=== PATIENT | male | born 1955 | race Caucasian/White ===

== ENCOUNTER → 2017-05-11 | Outpatient (CLI) | payer MEDICARE, OTHER ==
[~2017-05-11] MED LIST: AMLODIPINE BESY10 MG PO; ASPIR 8181 MG PO; AVAPRO 150 MG150 M1 PO; AVAPRO300 MG; AVAPRO300 MG PO; CELEBREX 200 M200 M1 PO; CELEBREX 200 M200 MG PO; CRESTOR10 MG PO; FLOMAX PO; HYDROCHLOROTHIA25 M1 PO; HYDROCODON-ACE1 EAC2 PO; LIDODERM 5%1 PATC1 TRANSDERM; MOBIC7.5 MG PO; NABUMETONE PO; NAPROSYN500 MG PO; NITROGLYCERIN0.4 MG SUBLING; PERCOCET 10-321 EACH PO; PERCOCET 5-3251 EACH PO; PERCOCET 7.5-31 EACH PO; PERCOCET PO; PLAVIX 75 MG TA75 M1 PO; POTASSIUM20 OR; RELAFEN500 MG; RELAFEN500 MG PO; TOPROL XL100 MG PO; TOPROL XL25 MG PO; TRICOR145 MG PO; ZOFRAN4 MG PO
--- NOTE | 2017-05-12 09:02 | PAINCON ---
[address] [address] PAIN MANAGEMENT CONSULTATION Name: PATRICIO PUENTE Room: [facility]#: [id number] Admission: 05/11/17 Attend Phys: John Puente DO Discharge: Date of : 59 Report #: [id number] THIS REPORT FOR: //name// CC: John Velasquez DO DATE OF SERVICE: 05/11/2017 REFERRING PHYSICIAN: Leonel Velasquez DO CHIEF COMPLAINT: Bilateral shoulder pain. HISTORY OF PRESENT ILLNESS: As you know, the patient is a very pleasant 61-year-old male who returns today in followup visit with recurrent bilateral shoulder pain that is progressively worsening. The patient has requested intraarticular shoulder injections to be provided today. We discussed with the patient undergoing the right shoulder injection today, if continue to experience left shoulder pain, we would consider this as a procedure next week. We wish to limit the amount of exposure to steroid if we could possibly do so. He returns for this right shoulder injection today. He denies new injury or new trauma that may have led to symptoms. ALLERGIES: PENICILLIN. CURRENT MEDICATIONS: Amlodipine 10 mg once a day, aspirin 81 mg per day, fenofibrate 145 mg per day, irbesartan 150 mg per day, metoprolol 25 mg once a day, Percocet 10/325 one tab every 8 hours p.r.n. for pain, and lovastatin 10 mg per day. SOCIAL HISTORY: The patient continues to smoke. He denies IV or illicit drug use. Denies any chronic alcohol use. He is unaccompanied today. IMAGING: No imaging available. PHYSICAL EXAMINATION: VITAL SIGNS: Blood pressure 122/60, pulse 68, respiratory rate 16 and unlabored, the patient is 98% on room air, current temperature 97.7 degrees Fahrenheit, height 5 feet 10 inches tall, weight 239 pounds, and BMI calculated 34. GENERAL: Well-developed, well-nourished, well-hydrated, exogenously obese 61-year-old male, appearing stated age, placing current pain score 9-10, right shoulder greater than left. HEENT: Normocephalic, atraumatic. Pupils are equal, round, and reactive to light. Extraocular muscles are intact. EXTREMITIES: Show no clubbing, no cyanosis, [place] [address] PAIN MANAGEMENT CONSULTATION Name: PATRICIO PUENTE Room: [facility]#: [id number] Admission: 05/11/17 Attend Phys: John Puente DO Discharge: Date of : 59 Report #: [id number] MUSCULOSKELETAL: There is pain elicited with active and passive range of motion of the bilateral shoulders. There is limitation of motion on the right, mainly due to pain generation. Muscle bulk and tone equal and symmetrical. Well-healed surgical scar over the right shoulder. ASSESSMENT: 1. Right shoulder pain. 2. Right shoulder osteoarthritis. 3. Chronic lumbar radiculopathy. 4. Displacement of lumbar intervertebral disk with radiculopathy. 5. Lumbosacral spondylosis with radiculopathy. 6. Chronic intractable pain. PLAN: 1. The patient returns today in followup visit with concerns of bilateral shoulder pain, right greater than left. We have provided today's appointment to undergo a right intraarticular shoulder injection. The hope is we can improve the patient's right shoulder pain with these injections as we have seen good efficacy in the past and having the patient return today to undergo this procedure. He has been advised the risks and benefits of the procedure, states understood and wished to proceed. 2. The patient will be scheduled next week to undergo left shoulder intra-articular injection if necessary. We will set the appointment for the patient to return next week for the left intraarticular shoulder injection. If the patient is doing well at that time, we will delay the procedure. 3. The patient and I had a very long discussion about impending surgical procedure from the low back standpoint, he is seeing a physician at [facility]. The patient underwent a CT myelogram last week. He is going back to review the findings and discuss the possibility of undergoing surgery. He will keep us apprised of this surgical possibility. 4. No medication changes were made at today's visit. The patient to continue current medical therapy as previously prescribed. 5. We will see the patient back in followup visit next week for possible left intraarticular shoulder injection. PROCEDURE NOTE DESCRIPTION OF PROCEDURE: Right intra-articular shoulder injection under fluoroscopic guidance. After obtaining written consent, the patient was taken back to fluoroscopy suite, placed in a supine position with pillow under shoulder for comfort. The image intensifier was then brought into position over the right shoulder and imaging was obtained. A sterile marker was then used to melani the area overlying the site of injection. The patient was then prepped and draped with chlorhexidine. A 27-gauge 1-1/4-inch needle was then [place] [address] PAIN MANAGEMENT CONSULTATION Name: PATRICIO PUENTE Room: [facility]#: [id number] Admission: 05/11/17 Attend Phys: John Puente DO Discharge: Date of : 59 Report #: [id number] skin and subcutaneous tissue overlying the target site of injection. A 25-gauge 2-inch needle was advanced under fluoroscopic guidance towards the proximal head of the humerus. This was done under live fluoroscopy. Needle was advanced until reaching the proximal head of the humerus, then retracted approximately 1 mm. After negative aspiration for heme, 3 mL of a solution containing 1 mL 40 mg per mL, 40 mg total triamcinolone, 2 mL bupivacaine 0.5% was injected slowly. Needle retracted fci, flushed with 0.5 mL of 0.5% bupivacaine and removed. Sterile bandage placed over injection site. The patient tolerated the procedure well, carefully escorted to the recovery room in stable condition. No apparent complication. After meeting discharge criteria, the patient discharged home. <ELECTRONICALLY SIGNED> By: John Puente DO 05/12/17 0902 [id number] [id number] Puente DO /nt
== END | disposition home or self-care (01) ==
LOC: M.PC 01:18
DX: M19.011 Primary osteoarthritis, right shoulder (principal); G89.29 Other chronic pain; M51.16 Intervertebral disc disorders with radiculopathy, lumbar region; M47.27 Other spondylosis with radiculopathy, lumbosacral region; F17.210 Nicotine dependence, cigarettes, uncomplicated; Z88.0 Allergy status to penicillin; Z79.899 Other long term (current) drug therapy; Z79.82 Long term (current) use of aspirin

== ENCOUNTER → 2017-05-18 | Outpatient (CLI) | payer MEDICARE, OTHER ==
--- NOTE | 2017-06-02 07:28 | PAINCON ---
[address] [address] PAIN MANAGEMENT CONSULTATION Name: PATRICIO PUENTE Room: [facility]#: [id number] Admission: 05/18/17 Attend Phys: John Puente DO Discharge: Date of : 59 Report #: [id number] THIS REPORT FOR: //name// CC: John Velasquez DO DATE OF SERVICE: 05/18/2017 REFERRING PHYSICIAN: Leonel Velasquez DO CHIEF COMPLAINT: Left shoulder pain. HISTORY OF PRESENT ILLNESS: As you know, the patient is a very pleasant 61-year-old male who returns today in followup visit to undergo left intraarticular shoulder injection under fluoroscopic guidance. He underwent right shoulder injection last week with good efficacy. He is following up with his neurosurgeon in regards to low back symptoms. He has returned today with a level of 5/10 left shoulder pain, for which he wants to address with a left intraarticular shoulder injection. He denies injury or trauma to the area. He does carry the diagnosis of rotator cuff injury and osteoarthritis of the left shoulder. ALLERGIES: PENICILLIN. CURRENT MEDICATIONS: Amlodipine, aspirin, fenofibrate, irbesartan, metoprolol, oxycodone. SOCIAL HISTORY: The patient denies IV or illicit drug use. Denies any chronic alcohol use. He continues to smoke. He is unaccompanied today. IMAGING: No new imaging available. PHYSICAL EXAMINATION: VITAL SIGNS: Blood pressure 117/77, pulse is 60, respiratory rate 16 and unlabored, the patient is 98% on room air, current temperature 98.2 degrees Fahrenheit. Height 5 feet 10 inches tall, weight 230 pounds, BMI calculated 33. GENERAL: Well-developed, well-nourished, well-hydrated 61-year-old male who appears stated age, placing current pain score 5/10, left shoulder. HEENT: Normocephalic, atraumatic. Pupils equal, round, reactive to light. EXTREMITIES: Show no clubbing, no cyanosis, no edema. MUSCULOSKELETAL: Pain is elicited with active and passive range of motion of left shoulder. There is noted limitation of motion on the left when compared to the right. Today, right appears improved after intraarticular shoulder injection, well-healed surgical [place] [address] PAIN MANAGEMENT CONSULTATION Name: PATRICIO PUENTE Room: [facility]#: [id number] Admission: 05/18/17 Attend Phys: John Puente DO Discharge: Date of : 59 Report #: [id number] ASSESSMENT: 1. Left shoulder osteoarthritis. 2. Right shoulder osteoarthritis. 3. Chronic left shoulder pain. 4. Chronic right shoulder pain. 5. Chronic lumbar radiculopathy. 6. Displacement of lumbar intervertebral disk with radiculopathy. 7. Lumbosacral spondylosis with radiculopathy. 8. Chronic intractable pain. PLAN: 1. The patient returns today in followup visit to undergo a left intraarticular shoulder injection. He has noted good efficacy with his right intraarticular shoulder injection from last visit. At this point, the patient is placing pain score 5/10. He has been advised risks and benefits of a left intraarticular shoulder injection, states understood and wished to proceed. 2. The patient was provided a prescription of oxycodone 10/325 one tab p.o. q. 5 hours p.r.n. for pain, he was given #90, releases today, 2 weeks from today and 4 weeks from today, 6 weeks' worth of medication. 3. We will see the patient back in followup visit in 6 weeks for medication management. <ELECTRONICALLY SIGNED> By: John Puente DO 06/02/17 0728 0909 1409Jajared Puente DO /nt
--- NOTE | 2017-06-02 07:28 | PROC ---
[address] [address] PROCEDURE REPORT Name: PATRICIO PUENTE Room: [facility]#: [id number] Admission: 05/18/17 Attend Phys: John Puente DO Discharge: Date of : 59 Report #: [id number] THIS REPORT FOR: //name// CC: John Velasquez DO DATE OF SERVICE: 05/18/2017 PROCEDURE NOTE DESCRIPTION OF PROCEDURE: Left intra-articular shoulder injection under fluoroscopic guidance. After obtaining written consent, the patient was taken to the fluoroscopy suite, placed in a supine position. A pillow was placed under the shoulder for comfort. The image intensifier was then brought into position over the left shoulder and imaging was obtained. A sterile marker was used to melani the area overlying the site of injection. The skin was prepped and draped in aseptic fashion using chlorhexidine. A 27-gauge, 1.25" needle was then used to anesthetize skin and subcutaneous tissue with 2 mL of 1% lidocaine. A 25-gauge 2-inch needle was advanced under fluoroscopic guidance into the left shoulder under direct visualization. The needle was advanced until reaching the proximal head of the humerus. Needle was then retracted approximately 1 mm and aspiration noted to be negative for heme. After negative aspiration for heme, 0.3 mL of Omnipaque was injected demonstrating an excellent shoulder arthrogram. After negative aspiration for heme, 3 mL of a solution containing 1 mL 40 mg per mL, 40 mg total triamcinolone, 2 mL bupivacaine 0.5% injected slowly. Needle retracted retirement, flushed with 1 mL of 1% lidocaine and removed. Sterile bandage placed over injection site. No new motor deficits present in the left upper extremity. The patient tolerated procedure well, carefully escorted to the recovery room in stable condition. No apparent complications. After meeting discharge criteria, the patient discharged home. <ELECTRONICALLY SIGNED> By: John Puente DO 06/02/17 0728 0909 [id number] Puente DO /nt
== END | disposition home or self-care (01) ==
LOC: M.PC 00:56
DX: M19.012 Primary osteoarthritis, left shoulder (principal); M19.011 Primary osteoarthritis, right shoulder; M51.16 Intervertebral disc disorders with radiculopathy, lumbar region; M47.27 Other spondylosis with radiculopathy, lumbosacral region; G89.29 Other chronic pain; Z68.33 Body mass index [BMI] 33.0-33.9, adult; Z88.0 Allergy status to penicillin; Z79.899 Other long term (current) drug therapy

== ENCOUNTER → 2017-06-30 | Outpatient (CLI) | payer MEDICARE, OTHER ==
--- NOTE | 2017-07-01 14:44 | PAINCON ---
[address] [address] PAIN MANAGEMENT CONSULTATION Name: PATRICIO PUENTE Room: [facility]#: [id number] Admission: 06/30/17 Attend Phys: Kimberly Burgos MD Discharge: Date of : 59 Report #: [id number] THIS REPORT FOR: //name// CC: Kimberly Velasquez DO DATE OF SERVICE: 06/30/2017 CHIEF COMPLAINT: Low back pain, hip pain, hand pain and knee pain. FOLLOWUP HISTORY: The patient is a 61-year-old gentleman who has been followed in the pain clinic by Dr. John Puente since 2010. This is my first visit with the patient. He is followed in the pain clinic because of chronic pain involving his shoulders, low back area and chronic intractable pain. He recently received injections in his shoulders, left and right. He has noted an improvement in that pain and discomfort. Has some pain in his low back area. He does have a nerve stimulator in place. States he has had that for about 4 years. Finds it is helpful. Also suffers from fibromyalgia. In the past, he did undergo a series of epidural steroid injections until they became less helpful. He has been trying to decrease his weight. Feels that "losing some weight" may help his back pain. ALLERGIES: PENICILLIN. MEDICATIONS: Amlodipine 10 mg daily, aspirin 81 mg daily, TriCor 145 mg tablets, cholesterol, Avapro 150 mg tablets, metoprolol 25 mg, oxycodone 10/325 one p.o. 5 times daily, Crestor 10 mg daily. PAST MEDICAL HISTORY: Hypertension, fibromyalgia, chronic low back pain, chronic bilateral hip pain, chronic bilateral knee pain, chronic bilateral shoulder pain, myocardial infarct, non-ST, hyperlipidemia or dyslipidemia, arthritis, bilateral knee pain, bilateral hip, chronic intractable pain, PAST SURGICAL HISTORY: Right surgical surgery x 2. 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 PHYSICAL EXAMINATION: GENERAL: The patient is a well-developed, well-nourished male. Appearance: Appears his stated age. Orientation: The patient is alert and oriented x 3. Affect appears appropriate. HEENT: Normocephalic, atraumatic. Extraocular eye muscles intact. No nasal congestion. Hearing appears normal. Moist buccal membranes. NECK: [place] [address] PAIN MANAGEMENT CONSULTATION Name: PATRICIO PUENTE Room: [facility]#: [id number] Admission: 06/30/17 Attend Phys: Kimberly Burgos MD Discharge: Date of : 59 Report #: [id number] LUNGS: Clear. HEART: Regular rate. ABDOMEN: Slightly protuberant. MUSCULOSKELETAL: Alignment appears within normal limits. Upper extremity strength is judged to be 5/5 with major muscle groups. Sensation in the upper extremities within normal limits without problems. Biceps reflexes +1 bilaterally. Lower extremity, notes symmetric musculature bilaterally. Complains of some pain and discomfort in the low back area. Has some soreness in the upper shoulders bilaterally, but much improved as compared to prior to injections by Fuentes. ASSESSMENT: 1. Left shoulder osteoarthritis. 2. Right shoulder osteoarthritis. 3. Chronic left shoulder pain. 4. Chronic right shoulder pain. 5. Chronic lumbar radiculopathy. 6. Displacement of lumbar intervertebral disk with radiculopathy. 7. Lumbosacral spondylosis with radiculopathy. 8. Chronic intractable pain. RECOMMENDATION: The patient states that his shoulders have improved after the injections under fluoroscopy with Fuentes. He states that he does have fibromyalgia. He states that he is not taking Lyrica that this medication was not very helpful. Notes that, he continues to use his dorsal column stimulator. He is able to change its settings. He finds that this is helpful. He states that he is trying to lose weight. He feels that his pain pills are helpful. We discussed the use of opioid medications. We explained to him that we are pretty much at the limit of what we could give hope Percocet saravia. He can take up to 5 tablets per day. We would need to go to a longer acting agent if he feels that the pain continues to be quite problematic. At this juncture, he feels that he would like to continue with his current medical regimen. He will call us if he has any problems with his medications. A script for the Percocet 1 p.o. q. 5 hours p.r.n. pain, total of 90 were rewritten. These are dispense in 2-week intervals. Total of three scripts were provided. We would like to thank you for letting us participate in his care. We hope he continues to improve. <ELECTRONICALLY SIGNED> By: Kimberly Burgos MD 07/01/17 1444 1445 1944N. Scott Burgos MD /[facility]
--- NOTE | 2017-07-01 14:44 | PAINCON ---
[address] [address] PAIN MANAGEMENT CONSULTATION Name: PATRICIO PUENTE Room: [facility]#: [id number] Admission: 06/30/17 Attend Phys: Kimberly Burgos MD Discharge: Date of : 59 Report #: [id number] THIS REPORT FOR: //name// CC: Kimberly Velasquez DATE OF SERVICE: 06/30/2017 ADDENDUM: For the file #[id number] PHYSICAL EXAMINATION: GENERAL: The patient is a well-developed, well-nourished male. Appearance: Appears his stated age. Orientation: The patient is alert and oriented x 3. Affect appears appropriate. HEENT: Normocephalic, atraumatic. Extraocular eye muscles intact. No nasal congestion. Hearing appears normal. Moist buccal membranes. NECK: Without adenopathy. LUNGS: Clear. HEART: Regular rate. ABDOMEN: Slightly protuberant. MUSCULOSKELETAL: Alignment appears within normal limits. Upper extremity strength is judged to be 5/5 with major muscle groups. Sensation in the upper extremities within normal limits without problems. Biceps reflexes +1 bilaterally. Lower extremity, notes symmetric musculature bilaterally. Complains of some pain and discomfort in the low back area. Has some soreness in the upper shoulders bilaterally, but much improved as compared to prior to injections by Fuentes. ASSESSMENT: 1. Left shoulder osteoarthritis. 2. Right shoulder osteoarthritis. 3. Chronic left shoulder pain. 4. Chronic right shoulder pain. 5. Chronic lumbar radiculopathy. 6. Displacement of lumbar intervertebral disk with radiculopathy. 7. Lumbosacral spondylosis with radiculopathy. 8. Chronic intractable pain. RECOMMENDATION: The patient states that his shoulders have improved after the injections under fluoroscopy with Fuentes. He states that he does have fibromyalgia. He states that he is not taking Lyrica that this medication was not very helpful. Notes that, he continues to use his dorsal column stimulator. He is able to change its settings. He finds that this is helpful. He states that he is trying to lose weight. He feels that his pain pills are helpful. We discussed the use of opioid medications. [place] explained [place] [address] PAIN MANAGEMENT CONSULTATION Name: PATRICIO PUENTE Room: [facility]#: [id number] Admission: 06/30/17 Attend Phys: Kimberly Burgos MD Discharge: Date of : 59 Report #: [id number] pretty much at the limit of what we could give hope Percocet saravia. He can take up to 5 tablets per day. We would need to go to a longer acting agent if he feels that the pain continues to be quite problematic. At this juncture, he feels that he would like to continue with his current medical regimen. He will call us if he has any problems with his medications. A script for the Percocet 1 p.o. q. 5 hours p.r.n. pain, total of 90 were rewritten. These are dispense in 2-week intervals. Total of three scripts were provided. We would like to thank you for letting us participate in his care. We hope he continues to improve. <ELECTRONICALLY SIGNED> By: Kimberly Burgos MD 07/01/17 1444 1455 1926N. Scott Burgos MD /[facility]
== END ==
LOC: M.PC 06-08 08:00
DX: M47.27 Other spondylosis with radiculopathy, lumbosacral region (principal); M51.16 Intervertebral disc disorders with radiculopathy, lumbar region; M19.012 Primary osteoarthritis, left shoulder; M19.011 Primary osteoarthritis, right shoulder; G89.4 Chronic pain syndrome

== ENCOUNTER → 2017-08-25 | Outpatient (CLI) | payer MEDICARE, OTHER ==
--- NOTE | 2017-09-01 10:23 | PAINCON ---
[address] [address] PAIN MANAGEMENT CONSULTATION Name: KWAMEPATRICIO Sky [id number] Admission: 08/25/17 Attend Phys: Kimberly Burgos MD Discharge: Date of : 59 Report #: [id number] THIS REPORT FOR: //name// CC: Kimberly Velasquez DO DATE OF SERVICE: 08/25/2017 FOLLOWUP COMPLAINT: Here for medication renewal and I would like to have a shoulder injection. FOLLOWUP HISTORY: The patient is a 61-year-old gentleman who has been seen in the pain clinic for quite a number of years. As you recall, he has problems with both his left shoulder and right shoulder. He has undergone injections into the shoulders in the past and gleaned benefits from these. At this juncture, he has pain, which is problematic in both left and right. Left is more problematic at this juncture. He has noted that the weather changes from cold to more warm temperatures and back again have exacerbated his pain and discomfort. He states that he has had 3 shoulder operations on the right and 2 shoulder surgeries on the left. He has noticed a limited range of motion secondary to these pains. He feels that his medications of hydrocodone are efficacious. He has taken the medication as prescribed. He is having no complication from its use. He has been watching the decision-making regarding opioids in the media. He feels that his medications are quite efficacious and allow him to be engaged in activities of daily living, he would not be able to without their use. Rates his pain as a 3/10 with use of his medications. The patient also has a dorsal column stimulator that he uses, which he feels can be helpful with pain and discomfort, which he is experiencing. As you recall, he also has fibromyalgia. ALLERGIES: PENICILLIN. CURRENT MEDICATIONS: Amlodipine 10 mg daily, aspirin 81 mg, TriCor 145 mg tablets, cholesterol, Avapro 150 mg tablets, metoprolol 25 mg, oxycodone 10/325 one tablet p.o. 5 times daily, Crestor 10 mg daily. PAIN CLINIC ASSESSMENT: 1. History of osteoarthritis involving his left shoulder as well as some low back changes. 2. Height 5 feet 10 inches, weight 230 pounds, BMI is 33. 3. Vital signs: Blood pressure 103/62, heart rate 48, respiratory rate 16, room air O2 saturation is 98%, temperature 97.7. 4. Pain intensity 3/10. 5. Fall risk. The patient has not fallen in the last 3 months. 6. The patient is on blood thinner. The patient [place] [address] PAIN MANAGEMENT CONSULTATION Name: PATRICIO PUENTE Room: [facility]#: [id number] Admission: 08/25/17 Attend Phys: Kimberly Burgos MD Discharge: Date of : 59 Report #: [id number] 7. Hypertension. The patient is being treated for hypertension. 8. Opioid therapy greater than 6 weeks. The patient is on opioid therapy and takes medications from the pain clinic. He only get his opioid from 1 source. 9. Risk assessment tool. 10. Functional assessment tool. 11. Recreational drug use. The patient denies use of recreational drugs. 12. Tobacco: The patient has smoked for 45 years and smokes about 15 cigarettes per day at this juncture. 13. Alcohol: The patient denies frequent use of alcoholic beverages. PHYSICAL EXAMINATION: GENERAL: The patient is a well-developed, nourished white male. He appears his stated age. He is alert and oriented x 3. His affect is appropriate. HEENT: Normocephalic, atraumatic. Extraocular eye muscles intact. Sclerae nonicteric. Nasal mucosa moist. Hearing is within normal limits. NECK: Without adenopathy or JVD. Good range of motion. LUNGS: Clear to auscultation without rhonchi. HEART: Regular rate and rhythm. ABDOMEN: Slightly protuberant. MUSCULOSKELETAL: Alignment appears within normal limits without significant scoliosis, kyphosis, or lordosis. The patient has biceps reflexes that are +1 bilaterally. Complains of some pain, discomfort, and limitations in his shoulders secondary to chronic pain in these areas. Lower extremities are judged to be 5/5 for the major muscle groups in lower extremity. ASSESSMENT: 1. Left shoulder osteoarthritis. 2. Right shoulder osteoarthritis. 3. Chronic left shoulder pain. 4. Chronic right shoulder pain. 5. Chronic lumbar radicular pain. 6. Displacement of lumbar intervertebral disk. 7. Lumbosacral spondylosis. 8. Chronic intractable pain. 9. History of dorsal column stimulator. RECOMMENDATIONS: We discussed treatment options with the patient. He will return to the pain clinic in the future. At that point, we will then undergo an epidural steroid injection, possibly in the left shoulder area, if this is the most problematic at that point. We will proceed with a fluoroscopic-guided injection. He has noted over the years that this has been quite helpful and efficacious and he would like to proceed with [place] [address] PAIN MANAGEMENT CONSULTATION Name: PATRICIO PUENTE [facility] [id number] Admission: 08/25/17 Attend Phys: Kimberly Burgos MD Discharge: Date of : 59 Report #: [id number] visit. We would like to thank you for letting us participate in his care. We hope he continues to improve. <ELECTRONICALLY SIGNED> By: Kimberly Burgos MD 09/01/17 1023 [id number] [id number] Burgos MD /[facility]
== END ==
LOC: M.PC 03:53
DX: M19.012 Primary osteoarthritis, left shoulder (principal); M19.011 Primary osteoarthritis, right shoulder; G89.29 Other chronic pain; M25.511 Pain in right shoulder; M25.512 Pain in left shoulder; M47.27 Other spondylosis with radiculopathy, lumbosacral region; Z88.0 Allergy status to penicillin

== ENCOUNTER → 2017-09-01 | Outpatient (CLI) | payer MEDICARE, OTHER ==
--- NOTE | 2017-09-30 13:42 | PAINCON ---
[address] [address] PAIN MANAGEMENT CONSULTATION Name: PATRICIO PUENTE Room: [facility].#: [id number] Admission: 09/01/17 Attend Phys: Kimberly Burgos MD Discharge: Date of : 59 Report #: [id number] THIS REPORT FOR: //name// CC: Kimberly Velasquez DO DATE OF SERVICE: 09/01/2017 FOLLOWUP COMPLAINT: Here for shoulder injection. FOLLOWUP HISTORY: The patient is a 61-year-old gentleman who has been followed in the pain clinic. He has been seen by Dr. Puente on numerous occasions. He has undergone injections into his shoulders. He has gleaned benefits from these. At this juncture, he has noted some increased pain in both his left and the right shoulder. He has returned today with the possibility of undergoing an injection. As you may recall, he has had significant benefits from injections in the past. He rates his pain as a 7/10 at this juncture. His left shoulder is most problematic at this juncture. He would like to undergo treatment for this. ALLERGIES: PENICILLIN. CURRENT MEDICATIONS: Amlodipine 10 mg daily, aspirin 81 mg, TriCor 145 mg tablets, cholesterol, Avapro 150 mg tablets, metoprolol 25 mg, oxycodone 10/325 one tablet p.o. 5 times daily, Crestor 10 mg daily. PAIN CLINIC ASSESSMENT: 1. History of osteoarthritis involving his left as well as his right shoulder as well as some low back changes. 2. Height 5 feet 10 inches. Weight 228 pounds, BMI is 32. 3. Vital signs: Blood pressure 102/40, heart rate 55, respiratory rate 18, room air saturations 98%, temperature 97.9. 4. Pain score 4/10 5. Fall risk. The patient has not fallen in the last 3 months. 6. Blood thinner. The patient is not on a blood thinner. 7. Hypertension. The patient is being treated for hypertension. 8. Opioid therapy greater than 6 weeks. The patient is on opioid therapy and has been taking medications and get his medications from 1 source which at the pain clinic. 9. Risk assessment tool. 10. Functional assessment tool. 11. Recreational drug use. The patient denies use of recreational drugs. 12. Tobacco: The patient has not smoked for 45 years, smoked about 15 years prior to that juncture. 13. Alcohol. The patient denies [place] [address] PAIN MANAGEMENT CONSULTATION Name: PATRICIO PUENTE Room: [facility]#: [id number] Admission: 09/01/17 Attend Phys: Kimberly Burgos MD Discharge: Date of : 59 Report #: [id number] PHYSICAL EXAMINATION: GENERAL: The patient is a well-developed, well-nourished white male. Appears his stated age. He is alert and oriented x 3. His affect is appropriate. Speech is fluent. HEENT: Normocephalic, atraumatic. Extraocular eye muscles intact. Sclerae nonicteric. Mucous membranes are moist. Hearing is within normal limits. NECK: Without adenopathy or JVD. Good range of motion. LUNGS: Clear to auscultation without rhonchi or rales. HEART: Regular rate and rhythm. S1, S2. ABDOMEN: Slightly protuberant. MUSCULOSKELETAL: Without significant kyphosis, scoliosis or lordosis. The patient's biceps reflexes are +1 in his arms bilaterally. The patient has some increased pain and discomfort in his low back as well as some pain and discomfort in his shoulders bilaterally. Left shoulder is more problematic than the right. Somewhat limited in his ability to go through the range of motion with increasing pain with increasing movement. RECOMMENDATIONS: We discussed treatment options with the patient. Risks and benefits of a shoulder injection with local anesthetic and steroid were discussed. We will proceed with an injection using fluoroscopy. Risks and benefits of the procedure were discussed with the patient. Possible complications were reviewed. They include but are not limited to infection, increased muscle soreness, worsening of pain, no improvement in pain and the patient elects to proceed. PROCEDURE NOTE: The patient was placed in the supine position. His left shoulder area was visualized under fluoroscopy. The area was sterilely prepped with a chlorhexidine solution and allowed to dry on 2 occasions. A 25-gauge needle was then advanced under fluoroscopy into the head of humerus. Aspiration did not refill fluid. A total of 40 mg triamcinolone and 5 mL of 0.5% bupivacaine was injected. The patient tolerated the procedure well. There were no complications. He remained in the pain clinic for an appropriate amount of time. States that he may return in the near future for injection involving the contralateral side. We would like to thank you for letting us participate in his care. We hope he continues to improve. <ELECTRONICALLY SIGNED> By: Kimberly Burgos MD 09/30/17 1342 1306 0247N. Scott Burgos MD /[facility]
== END | disposition home or self-care (01) ==
LOC: M.PC 02:18
DX: M19.012 Primary osteoarthritis, left shoulder (principal); M19.011 Primary osteoarthritis, right shoulder; G89.29 Other chronic pain; I10 Essential (primary) hypertension; Z88.0 Allergy status to penicillin; Z79.899 Other long term (current) drug therapy; Z79.82 Long term (current) use of aspirin; Z87.891 Personal history of nicotine dependence; Z79.891 Long term (current) use of opiate analgesic; Z98.890 Other specified postprocedural states

== ENCOUNTER → 2017-09-08 | Outpatient (CLI) | payer MEDICARE, OTHER ==
--- NOTE | 2017-09-30 14:05 | PAINCON ---
[address] [address] PAIN MANAGEMENT CONSULTATION Name: PATRICIO PUENTE Room: [facility].#: [id number] Admission: 09/08/17 Attend Phys: Kimberly Burgos MD Discharge: Date of : 59 Report #: [id number] THIS REPORT FOR: //name// CC: Kimberly Velasquez DO DATE OF SERVICE: 09/08/2017 FOLLOWUP COMPLAINT: Here for evaluation of shoulder pain. FOLLOWUP HISTORY: The patient is a 61-year-old gentleman who has been seen in the Pain Clinic because of bilateral shoulder problems. He has been seen by Dr. John Puente in the past. He has undergone injections in his shoulders. In the past, he has gleaned significant benefit from the injections. The patient was seen and underwent a shoulder injection in the left area because of chronic pain. He returns today indicating that his pain continues to be problematic. He is not sure that he benefited significantly from the last injection. [place] that he had had a very good relationship with Dr. John Puente and would like to continue with that relationship. States that he would like to consider going to [facility]. This is where Dr. John Puente is practicing at this juncture. ALLERGIES: PENICILLIN. CURRENT MEDICATIONS: Amlodipine 10 mg daily, aspirin 81 mg, TriCor 145 mg tablets, cholesterol, Avapro 150 mg tablets, metoprolol 25 mg, oxycodone 10/325 one tablet p.o. 5 times daily, and Crestor 10 mg daily. PAIN CLINIC ASSESSMENT: 1. History of osteoarthritis involving his left as well as his right shoulder. The patient has had a number of surgeries on these. 2. Height 5 feet 10 inches, weight 230 pounds, BMI is 33. 3. Vital signs: Blood pressure 124/62, heart rate 60, respiratory rate 18, room air saturation 97%, and temperature 98.6. 4. Pain score 4 left shoulder, 5-6 right shoulder, back 6/10. 5. Fall risk. The patient has not fallen in the last 3 months. 6. Blood thinner. The patient is not on a blood thinning medication. 7. Hypertension. The patient is being treated for hypertension. 8. Opioid therapy greater than 6 weeks. The patient is on an opioid contract and refuses medications from physician. 9. Risk assessment tool. 10. Functional assessment tool. 11. Recreational drug use: The patient denies use of recreational drugs. 12. Tobacco: The patient has not smoked for 45 years, smoked for about 15 [place] [address] PAIN MANAGEMENT CONSULTATION Name: PATRICIO PUENTE Room: [facility]#: [id number] Admission: 09/08/17 Attend Phys: Kimberly Burgos MD Discharge: Date of : 59 Report #: [id number] 13. Alcohol: The patient denies frequent use of alcoholic beverages. PHYSICAL EXAMINATION: GENERAL: The patient is a well-developed white male. VITAL SIGNS: Appears his stated age. He is alert and oriented x 3. His affect is appropriate. Speech is fluent. HEENT: Normocephalic and atraumatic. Extraocular eye muscles intact. Sclerae nonicteric. Mucous membranes are moist. Hearing is within normal limits. NECK: Without JVD or adenopathy. Good range of motion. Clear to auscultation without rhonchi or rales. HEART: Regular rate. Normal S1, S2. ABDOMEN: Slightly protuberant. MUSCULOSKELETAL: Without significant scoliosis, kyphosis or lordosis. The patient has pain and discomfort in the left shoulder as well as in the right shoulder. Notes some decreased range of motion in these areas. Rates the pain in the left shoulder as 4/10 and right shoulder 5-6/10. RECOMMENDATION: The patient states that he would like to continue to follow his care with Dr. John Puente. Dr. Puente now practices at [facility]. The patient will follow up with a visit at that facility. He would then continue to be under the hospice of Dr. John Puente. We would like to thank you for letting us participate in his care. We hope he continues to improve. <ELECTRONICALLY SIGNED> By: Kimberly Burgos MD 09/30/17 1405 1254 1310N. Scott Burgos MD /nt
== END ==
LOC: M.PC 02:17
DX: M25.512 Pain in left shoulder (principal); M25.511 Pain in right shoulder; I10 Essential (primary) hypertension

== ENCOUNTER → 2020-06-21 | Outpatient (CLI) | payer MEDICARE, OTHER | LOC: M.LAB 05:46 | PROVIDERS: ATTEND Anesthesiology | DX: E87.6 Hypokalemia (principal) ==